=== PATIENT | female | born 1990 | race Caucasian/White ===

== ENCOUNTER 2023-01-17 21:43 | Emergency (ER) | payer SELFPAY ==
[~2023-01-17] VITALS: Ht 157.5 cm; Wt 69.0 kg
[2023-01-17] MEDS ORDERED: SODIUM CHLORIDE 0.9% 1,000 ML IV ONE (22:15)
[2023-01-17 23:31] LABS: BASOPHILS % 0.6 % (0.0-2.0); CLARITY URINE CLOUDY (CLEAR); COLOR URINE YELLOW (YELLOW); EOSINOPHILS % 0.2 % (0.0-5.0); HEMATOCRIT. 34.8 % (36.0-48.0); HEMOGLOBIN. 11.6 g/dL (12.0-16.0); KETONES URINE NEGATIVE (NEGATIVE); LEUKOCYTE ESTERASE URINE 2+ (NEGATIVE); LYMPHOCYTES % 19.9 % (20.0-50.0); MEAN CORPUSCULAR HEMOGLOBIN 25.3 pg (28.0-32.0); MEAN CORPUSCULAR VOLUME 76.2 fL (81.0-99.0); MONOCYTES % 6.2 % (2.0-8.0); NEUTROPHILS % 73.1 % (40.0-76.0); NITRITE URINE NEGATIVE (NEGATIVE); OCCULT BLOOD URINE NEGATIVE (NEGATIVE); PLATELET 251 x1000/uL (130-400); PROTEIN URINE NEGATIVE (NEGATIVE); RED BLOOD CELL COUNT 4.57 mill/uL (4.2-5.4); RED CELL DISTRIBUTION WIDTH 14.2 % (11.6-14.6); SPECIFIC GRAVITY URINE 1.007 (1.005-1.030); UROBILINOGEN URINE 0.2 E.U./dL (0.2-1.0)
[2023-01-17 23:42] LABS: CHLORIDE 112 mEq/L (98-107)
[2023-01-17 23:53] LABS: ETHANOL BLOOD 233 mg/dL
[2023-01-17 23:55] LABS: *AMPHETAMINES SCREEN URINE NEGATIVE (NEGATIVE); *BARBITURATES SCREEN URINE NEGATIVE (NEGATIVE); *BENZODIAZEPINES SCREEN URINE NEGATIVE (NEGATIVE); *COCAINE SCREEN URINE NEGATIVE (NEGATIVE); CANNABINOID URINE SCREEN NEGATIVE (NEGATIVE); HCG SCREEN NEGATIVE; METHADONE URINE SCREEN NEGATIVE (NEGATIVE); OPIATES URINE SCREEN NEGATIVE (NEGATIVE); PHENCYCLIDINE URINE SCREEN NEGATIVE (NEGATIVE)
[2023-01-18] MEDS ORDERED: CEPH500T MT (02:55)
[2023-01-18 06:10] VITALS: BP 101/65
== END 2023-01-18 06:20 | disposition home or self-care (01) ==
LOC: ER 21:43
DX: T51.91XA Toxic effect of unspecified alcohol, accidental (unintentional), initial encounter (principal); N30.00 Acute cystitis without hematuria; Z79.899 Other long term (current) drug therapy; Y92.89 Other specified places as the place of occurrence of the external cause
CPT/HCPCS: 36415; 73030; 80053; 80305; 80320; 81003; 81025; 84703; 85025; 96360; 96361; 99285; J7030; Z7610; G0480